=== PATIENT | male | born 1935 | race Hispanic/Latino ===

== ENCOUNTER 2017-11-12 14:24 | Emergency (ER) | payer MEDICARE, MEDICAID ==
[2017-11-12] MEDS ORDERED: Acetaminophen 500 MG TAB ONE (15:57)
[2017-11-12] MEDS ORDERED: Oseltamivir 75 MG CAP ONE (15:57)
--- NOTE | 2017-11-12 16:07 | RAD ---
CHEST TWO VIEW: HISTORY: Cough. COMPARISON: Chest radiograph from 2010. FINDINGS: The lungs are clear. No pneumothorax or effusion. The cardiac silhouette and mediastinal contours a re similar. Heart size is enlarged. Coronary artery stents are present. IMPRESSION: 1. No acute intrathoracic abnormality. 2. Calcified granuloma, right mid lung. POS: H
== END 2017-11-12 16:04 | disposition home or self-care (01) ==
LOC: SCSER 14:24
DX: J11.1 Influenza due to unidentified influenza virus with other respiratory manifestations (principal); I10 Essential (primary) hypertension
CPT/HCPCS: 71046; 87804